=== PATIENT | female | born 1945 | race African-American/Black ===

== ENCOUNTER 2018-04-24 11:43 | Emergency (ER) | payer MEDICAID, MEDICARE ==
[~2018-04-24] VITALS: Ht 167.6 cm; Wt 90.0 kg
[2018-04-24 11:51] VITALS: BP 136/72
[2018-04-24] MEDS ORDERED: PRED1TAB PO (11:54)
[2018-04-24] MEDS ORDERED: INSULIN (11:54)
== END 2018-04-24 14:07 | disposition home or self-care (01) ==
LOC: ER 12:40
DX: S70.12XA Contusion of left thigh, initial encounter (principal); E11.9 Type 2 diabetes mellitus without complications; I10 Essential (primary) hypertension; V49.49XA Driver injured in collision with other motor vehicles in traffic accident, initial encounter; Y93.89 Activity, other specified; Y92.89 Other specified places as the place of occurrence of the external cause; Y99.8 Other external cause status; Z98.890 Other specified postprocedural states
CPT/HCPCS: 99283